=== PATIENT | female | born 1970 | race Caucasian/White ===

== ENCOUNTER 2018-01-05 22:47 | Emergency (ER) | payer OTHER ==
[2018-01-05] MEDS ORDERED: PROMETHAZINE HCL 25 MG/ML INJ IVP ONE (22:51)
[2018-01-05] MEDS ORDERED: NS 1,000 ML IV ONE (22:51)
--- NOTE | 2018-01-05 23:02 | EDPHY ---
H & P Stated Complaint: [place], nausea post acid use Time Seen by Provider: 01/05/18 23:01 HPI/ROS: HPI The patient presents with vomiting, headache for the last 1 hr approximately. The patient is brought in by ambulance from a music concert where she took a dose of acid about 2 hr ago. She also use marijuana. She then began to have auditory hallucinations which she feels induced a migraine-type headache. She has a history of migraines and her headache currently feels identical. She reports a left-sided frontal throbbing headache associated with severe nausea and vomiting. She has had numerous episodes of nonbloody nonbilious emesis, not improved with Zofran in route. She denies head injury REVIEW OF SYSTEMS Constitutional: No fever, no chills. Eyes: No discharge. ENT: No sore throat. Cardiovascular: No chest pain, no palpitations. Respiratory: No cough, no shortness of breath. Gastrointestinal: No abdominal pain, positive for vomiting. Genitourinary: No hematuria. Musculoskeletal: No back pain. Skin: No rashes. Neurological: Positive for headache. PMHx: History of migraine headache, depression, anxiety Soc Hx: Here with her PHYSICAL General Appearance: Alert, no distress Eyes: Pupils equal and round no pallor or injection ENT, Mouth: Mucous membranes dry Respiratory: There are no retractions, lungs are clear to auscultation Cardiovascular: Regular rate and rhythm Gastrointestinal: Abdomen is soft and non-tender, no masses, bowel sounds normal Neurological: A&O, cranial nerves 2-12 intact, 5/5 strength in upper and lower extremities Skin: Warm and dry, no rashes Musculoskeletal: Neck is supple non tender Extremities: symmetrical, full range of motion Psychiatric: Patient is oriented X 3, there is no agitation Source: Patient, EMS Exam Limitations: Intoxication - Personal History Current Tetanus/Diphtheria Vaccine: Yes Current Tetanus Diphtheria and Acellular Pertussis (TDAP): Yes - Medical/Surgical History Hx Asthma: No Hx Chronic Respiratory Disease: No Hx Diabetes: No Hx Cardiac Disease: No Hx Renal Disease: No Hx Cirrhosis: No Hx Alcoholism: No Hx HIV/AIDS: No Hx Splenectomy or Spleen Trauma: No Other PMH: depession, anxiety - Social History Smoking Status: Current every day smoker Constitutional: Initial Vital Signs Temperature (C) 36.7 C 01/05/18 22:50 Heart Rate 57 L 01/05/18 22:50 Respiratory Rate 16 01/05/18 22:50 Blood Pressure 119/70 01/05/18 22:50 O2 Sat (%) 98 01/05/18 22:50 Allergies/Adverse Reactions: No Known Allergies Allergy (Unverified 01/05/18 22:57) Home Medications: Medication Instructions Recorded Celexa 01/05/18 Chantix 01/05/18 Gabapentin 01/05/18 [place] Aspartate 01/05/18 Seroquel 01/05/18 Medical Decision Making Differential Diagnosis: 47-year-old female with history of migraine, depression, anxiety brought in by ambulance from [facility] for headache, nausea and vomiting. Patient used LSD, developed auditory hallucinations, then developed unilateral throbbing headache feeling similar to prior migraines. Then had vomiting which was uncontrolled after receiving Zofran 0 DT. Here, she is well-appearing, has normal neurologic evaluation and is feeling better after receiving a dose of Phenergan. I will give her a dose of Toradol as well as she is still complaining of a headache but her nausea has improved. Differential diagnoses considered include migraine headache, intracranial hemorrhage, subarachnoid hemorrhage. The patient eventually felt well enough to go home and was discharged with her . - Data Points Medications Given: Discontinued Medications Sodium Chloride (Ns) 1,000 mls @ 0 mls/hr IV EDNOW ONE; [place] PRN Reason: Protocol Stop: 01/05/18 22:52 Last Admin: 01/05/18 23:00 Dose: 1,000 mls Promethazine HCl (Phenergan) 12.5 mg IVP ONCE ONE Stop: 01/05/18 22:52 Last Admin: 01/05/18 23:00 Dose: 12.5 mg Departure - Departure Disposition: Home, Routine, Self-Care Clinical Impression: Vomiting Qualifiers: Vomiting type: unspecified Vomiting Intractability: unspecified Nausea presence : with nausea Qualified Code(s): R11.2 - Nausea with vomiting, unspecified Migraine headache Qualifiers: Migraine type: unspecified Status migrainosus presence: without status migrainosus Intractability: not intractable Qualified Code(s): G43.909 - Migraine, unspecified, not intractable, without status migrainosus Poisoning by LSD Qualifiers: Encounter type: initial encounter Injury intent: accidental or unintentional Qualified Code(s): T40.8X1A - Poisoning by lysergide [LSD], accidental ( unintentional), initial encounter Condition: Good Instructions: Migraine Headache (ED) Additional Instructions: Please return directly to the emergency department if your worse in any way.
[2018-01-05] MEDS ORDERED: KETOROLAC 15 MG/1 ML SDV IVP ONE (23:35)
[2018-01-06 00:01] VITALS: BP 103/68
== END 2018-01-06 00:02 | disposition home or self-care (01) ==
LOC: EDSEX 22:47
DX: T40.8X1A Poisoning by lysergide [LSD], accidental (unintentional), initial encounter (principal); G43.909 Migraine, unspecified, not intractable, without status migrainosus; R11.2 Nausea with vomiting, unspecified; E86.9 Volume depletion, unspecified; F17.200 Nicotine dependence, unspecified, uncomplicated
CPT/HCPCS: 96361; 96374; 96375; 99284; J1885; J2550